=== PATIENT | male | born 1995 | race American Indian/Alaskan Native ===

== ENCOUNTER 2018-07-10 21:01 | Emergency (ER) | payer MEDICAID, OTHER ==
--- NOTE | 2018-07-10 21:33 | Emergency Department Report ---
Addendum entered and electronically signed by ALISON GARDNER NP 07/10/18 21:36: Blank Doc - Documentation Documentation: Strep test ordered in the ED. Original Note: Blank Doc - Documentation Documentation: This is a 23-year-old male that presents with body aches, sore throat, fever,chills x2 days. Denies any cough or any other URI symptoms. Denies any other complaints. This initial assessment diagnostic orders/clinical plan/treatment(s) is/are subject to change based on patient's health status, clinical progression and re- assessment by fellow clinical providers in the ED. Further treatment and workup at subsequent clinical providers discretion. Patient/guardians urged not to elope from ED s their condition may be serious if not clinically assessed and managed. Initial orders include: 1-patient sent to [facility] for further evaluation and treatment. 2- Tylenol
[2018-07-10] MEDS ORDERED: TYLENOL PO ONE (21:36)
[2018-07-10] MEDS ORDERED: TYLENOL ONE (21:37)
[2018-07-11 00:04] VITALS: BP 128/81
--- NOTE | 2018-07-11 00:25 | Emergency Department Report ---
ED Fever HPI - General Chief Complaint: Fever Stated Complaint: FEVER Time Seen by Provider: 07/10/18 21:32 Source: patient Exam Limitations: no limitations - History of Present Illness Timing/Duration: yesterday Fever Severity/Quality: greater than 100.5 F Fever Therapy [employer]: Ibuprofen (last tetanus) Associated Symptoms: headache (lightheaded), muscle aches, other (sore throat). denies: chest pain, cough, nausea/vomiting, shortness of breath ED Review of Systems ROS: Stated complaint: FEVER Other details as noted in HPI Comment: All other systems reviewed and negative Constitutional: chills, fever ENT: throat pain ED Past Medical Hx - Past Medical History Previous Medical History?: No - Surgical History Past Surgical History?: No - Social History Smoking Status: Never Smoker Substance Use Type: None - Medications Home Medications: Home Medications Medication Instructions Recorded Confirmed Last Taken Type Acetaminophen/Codeine [Tylenol #3] 1 tab PO Q6H PRN #10 tab 11/05/13 Unknown Rx Ibuprofen [Motrin] 800 mg PO Q8H PRN #20 tablet 11/05/13 Unknown Rx Ibuprofen [Motrin 600 MG tab] 600 mg PO Q8H PRN #21 tablet 07/11/18 Unknown Rx Oseltamivir [Tamiflu] 75 mg PO BID 5 Days #10 cap 07/11/18 Unknown Rx ED Physical Exam - General Limitations: No Limitations General appearance: alert, in no apparent distress - Head Head exam: Present: atraumatic, normocephalic - Eye Eye exam: Present: normal appearance - ENT ENT exam: Present: mucous membranes moist - Neck Neck exam: Present: normal inspection - Respiratory Respiratory exam: Present: normal lung sounds bilaterally. Absent: respiratory distress - Cardiovascular Cardiovascular Exam: Present: regular rate, normal rhythm. Absent: systolic murmur, diastolic murmur, rubs, gallop - GI/Abdominal GI/Abdominal exam: Present: soft, normal bowel sounds - Rectal Rectal exam: Present: deferred - Extremities Exam Extremities exam: Present: normal inspection - Back Exam Back exam: Present: normal inspection - Neurological Exam Neurological exam: Present: alert, oriented X3 - Psychiatric Psychiatric exam: Present: normal affect, normal mood - Skin Skin exam: Present: warm, dry, intact, normal color. Absent: rash ED Course Vital Signs 07/10/18 07/11/18 21:32 00:03 Temperature 100.3 F H 98.9 F Pulse Rate 97 H 66 Respiratory 18 16 Rate Blood Pressure 118/70 Blood Pressure 128/81 [Left] O2 Sat by Pulse 98 100 Oximetry ED Medical Decision Making - Medical Decision Making Patient has been evaluated by this provider in fast track. Patient was given a Tylenol in triage. Rapid strep was sent and reports negative. We'll treat patient for influenza with Tamiflu 75 mg by mouth twice a day for 5 days. Encourage patient to increase his water intake to advance his diet as tolerated. Critical care attestation.: If time is entered above; I have spent that time in minutes in the direct care of this critically ill patient, excluding procedure time. ED Disposition Clinical Impression: Influenza Disposition: DC-01 TO HOME OR SELFCARE Is pt being admited?: No Does the pt Need Aspirin: No Condition: Stable Instructions: Influenza (ED) Additional Instructions: Please complete antiviral medication taken Motrin as needed increase her fluid intake advance diet as tolerated if persist or gets worse follow up with her primary care provider. Prescriptions: Ibuprofen [Motrin 600 MG tab] 600 mg PO Q8H PRN #21 tablet PRN Reason: Pain Oseltamivir [Tamiflu] 75 mg PO BID 5 Days #10 cap Referrals: [facility] [Provider Group] - 3-5 Days Forms: Work/School Release Form(ED)
== END 2018-07-11 00:50 | disposition home or self-care (01) ==
LOC: ED 21:01
DX: J11.1 Influenza due to unidentified influenza virus with other respiratory manifestations (principal)
CPT/HCPCS: 87116; 87430; 99283